=== PATIENT | male | born 1960 | race Caucasian/White ===

== ENCOUNTER 2018-11-27 01:26 | Emergency (ER) | payer OTHER ==
[2018-11-27 01:39] VITALS: TEMP 98.8; BMI 28.8
[2018-11-27] MEDS ORDERED: LIDOCAINE 1%/EPI 1:100000 (20 ML MULTI DOSE VIAL) INF ONE (02:02)
[2018-11-27] MEDS ORDERED: LIDOCAINE 1%/EPI 1:100000 (20 ML MULTI DOSE VIAL) ONE (02:06)
--- NOTE | 2018-11-27 02:43 | PDOC ---
History of Present Illness - General Chief Complaint: Laceration Stated Complaint: LEFT LEG BLEEDING Time Seen by Provider: 11/27/18 01:54 - History of Present Illness Initial Comments: Grant Rowland is a 57yo man with a PMH of a-fib on Eliquis, 2x cardiac stents on Brillinta, HTN, HLD who presents with brisk bleeding from the left ankle after he accidentally scratched a varicose vein this evening. He states that he saw the bleeding, immediately held pressure on the area, and a co-worker called EMS. The wound was wrapped with ABD's and jyoti with improvement in the bleeding. Mr Rowland states that the total bleeding was minimal as he was able to apply pressure so quickly. He has never had anything similar happen before. He has not been evaluated for the varicose veins as he has been relatively asymptomatic, though he does note that he has some swelling at the end of the day. Past History - Past Medical History Allergies/Adverse Reactions: Allergies Allergy/AdvReac Type Severity Reaction Status Date / Time No Known Allergies Allergy Verified 11/27/18 01:34 Cardiac Disorders: Yes (afib) COPD: No HTN: Yes Hypercholesterolemia: Yes - Surgical History Cardiac Surgery: Yes (stent) - Suicide/Smoking/Psychosocial Hx Smoking History: Never smoked Review of Systems - Review of Systems Comments:: General: No fevers, no chills, no weight or appetite change, no malaise HEENT: No changes in vision, no changes in hearing, no congestion, no sore throat CV: No chest pain, no palpitations, no LE edema Pulm: No SOB, no cough, no wheezing GI: No nausea or vomiting, no change in bowel habits, no melena : No frequency, no urgency, no dysuria Musc: No back pain, no joint swelling, no recent injury Skin: No rash, no lesions, no erythema Endo: No excessive thirst, no heat/cold intolerance Heme: No unusual bruising or bleeding, no swollen glands Neuro: No syncope, no numbness/tingling, no focal weakness Vasc: No claudication Psych: No recent change in mood, no SI or HI *Physical Exam - Vital Signs Last Vital Signs Temp Pulse Resp BP Pulse Ox 98.8 F 61 18 166/70 100 11/27/18 01:35 11/27/18 01:35 11/27/18 01:35 11/27/18 01:35 11/27/18 01:35 - Physical Exam Comments: General: Comfortable, no acute distress HEENT: Atraumatic, EOMI, PERRL, MMM Cards: RRR Pulm: Comfortable on room air Abd: soft, nontender, nondistended Ext: LLE with active bleeding from a varicosity on the distal anterior meredith, brisk but not pulsitile. 1+ BLE edema. Left foot movements intact, sensation to light touch intact. Vasc: Extremities WWP. Palpable radial and pedal pulses bilaterally Skin: Normal color, no rashes or lesions Neuro: A&Ox3, CN grossly intact, normal speech, motor/sensory grossly intact and symmetric Psych: Mood appropriate to situation Medical Decision Making - Medical Decision Making 11/27/18 02:36 Grant Rowland is a 57yo man with a PMH of a-fib on Eliquis, 2x cardiac stents on Brillinta, HTN, HLD who presents a bleeding LLE varicose vein. - Brisk venous bleeding from a varicosity on the anterior meredith - 2cc 1% lidocaine w/ epi used for local anesthesia and vasoconstriction in the area of bleeding - 4-[address] figure 8 suture with significant improvement in the active bleeding. Second, simple interrupted suture placed with near resolution. Some oozing blood from the puncture sites from the suture needle - Surgicel placed over the wound with complete resolution of bleeding - Wound wrapped with jyoti and GOLDEN wrap - Patient instructed in detail on home care including leaving dressing in place for at least 24hrs, removal of wrap for any numbness/tingling/swelling in foot, follow up with PMD, and suture removal. He states understanding and agreement with this plan. Seen with Dr Moody. Sara Briscoe PGY1 *DC/Admit/Observation/Transfer Diagnosis at time of Disposition: Bleeding from varicose veins of left lower extremity - Discharge Dispostion Disposition: HOME Condition at time of disposition: Stable Decision to Admit order: No - Referrals Referrals: Floyd Hood MS [Primary Care Provider] - - Patient Instructions Printed Discharge Instructions: DI for Varicose Veins Additional Instructions: Discharge Instructions: You were seen in the ED for bleeding from a left leg varicose vein. The bleeding was stopped by placing 2 stitches over the area of bleeding. The area was then wrapped with a pressure dressing. Home Care and Follow Up: - Please leave the pressure dressing in place for at least 24 hours - After 24 hours, you may carefully remove the dressing. You will probably have a small piece of gauze that remains stuck to the wound (underneath the yellow vaseline gauze). Please leave this in place as removing it may restart the bleeding. - If you have any numbness, tingling, swelling, or redness in your foot, remove or loosen the pressure dressing. The sensation should resolve within a few minutes - Keep your leg elevated as much as possible over the next 3-4 days - It is recommended that you keep the wound covered until it is healed completely - Consider wearing compression stockings to reduce swelling in your legs, especially if you are going to be standing for a significant length of time. These are available over the counter at any pharmacy or can be prescribed by your regular doctor. - Follow up with your doctor within the next 2-3 days for a check of your wound - You will need to be seen in 7-10 days for removal of the stitches unless your regular doctor instructs you otherwise - Seek immediate medical care for any continued bleeding including blood soaking through the bandage, numbness/tingling in your foot that does not resolve with removal of the pressure dressing, redness and pain surrounding the wound, thick or foul smelling drainage from the wound, or any other medical emergency. - Post Discharge Activity
[2018-11-27 02:57] VITALS: BP 161/72; PULSE 62
--- NOTE | 2018-11-27 03:25 | PDOC ---
Attending Attestation - Resident Resident Name: Sara Briscoe - ED Attending Attestation I have performed the following: I have examined & evaluated the patient, The case was reviewed & discussed with the resident, I agree w/resident's findings & plan, Exceptions are as noted - HPI HPI: 11/27/18 03:13 57 yo male with ho afib (eliquis) , CAD with stents on Brilinta, HTN, HLD here after scratching a varicose veini left anterior meredith. was having itching, and scratched it. has had bleeding since. applied pressure with little relief. no other current complaints. - Physicial Exam PE: 11/27/18 03:25 awake alert lungs clear bilateral heart rrr no mrg abd soft nt nd. ext wwp left anterior meredith with small bleeding varicose vein, appears venous. - Medical Decision Making 11/27/18 03:26 pt with bleeding varicosity, plan to suture. figure of eight stitch applied. then surgical ad compressive dressing. tolerated well. lido with epi used. no active bleeding following. dc home.
== END 2018-11-27 02:55 | disposition home or self-care (01) ==
LOC: JER 01:26
PROC: 3E00XBZ Introduction of Anesthetic Agent into Skin and Mucous Membranes, External Approach (ICD-10-PCS; principal; 2018-11-27)
DX: I83.892 Varicose veins of left lower extremity with other complications (principal); I25.10 Atherosclerotic heart disease of native coronary artery without angina pectoris; I10 Essential (primary) hypertension; Z95.5 Presence of coronary angioplasty implant and graft; I48.2 Chronic atrial fibrillation; Z79.01 Long term (current) use of anticoagulants
CPT/HCPCS: 96372; 99282-25